=== PATIENT | male | born 1995 | race Caucasian/White ===

== ENCOUNTER 2017-08-01 23:56 | Emergency (ER) | payer SELFPAY | END 2017-08-02 02:00 | disposition home or self-care (01) | LOC: D.ER 23:56 | DX: J20.9 Acute bronchitis, unspecified (principal); F17.200 Nicotine dependence, unspecified, uncomplicated ==

== ENCOUNTER 2018-09-14 11:38 | Emergency (ER) | payer MEDICAID ==
[~2018-09-14] VITALS: Ht 162.6 cm; Wt 56.8 kg
[2018-09-14 11:47] VITALS: Ht 162.6 cm; Wt 56.8 kg
[2018-09-14] MEDS ORDERED: EC-NAPROSYN500 MG PO (12:23)
[2018-09-14 12:41] VITALS: BP 124/73
== END 2018-09-14 12:42 | disposition home or self-care (01) ==
LOC: D.ER 11:38
DX: S63.617A Unspecified sprain of left little finger, initial encounter (principal); V29.9XXA Motorcycle rider (driver) (passenger) injured in unspecified traffic accident, initial encounter; Y93.89 Activity, other specified; Y92.89 Other specified places as the place of occurrence of the external cause